=== PATIENT | male | born 1990 | race Two or more races ===

== ENCOUNTER 2018-04-23 13:51 | Emergency (ER) | payer OTHER ==
[2018-04-23 14:23] VITALS: BP 122/70; PULSE 80; TEMP 98.1; BMI 25.1
--- NOTE | 2018-04-23 15:12 | PDOC ---
History of Present Illness - General Chief Complaint: Injury Stated Complaint: INJURY Time Seen by Provider: 04/23/18 14:38 History Source: Patient Exam Limitations: No Limitations - History of Present Illness Initial Comments: 04/23/18 15:08 pt twisted right ankle 3 days ago stepped in a drain that was not covered. Past History - Past Medical History Allergies/Adverse Reactions: Allergies Allergy/AdvReac Type Severity Reaction Status Date / Time No Known Allergies Allergy Verified 04/23/18 14:23 Home Medications: Ambulatory Orders No Home Medications 0 dose .ROUTE UTDICT 12/20/12 Asthma: Yes COPD: No - Suicide/Smoking/Psychosocial Hx Smoking Status: No Smoking History: Never smoked Number of Cigarettes Smoked Daily: 0 Hx Alcohol Use: No Drug/Substance Use Hx: No Substance Use Type: None *Physical Exam - Vital Signs Last Vital Signs Temp Pulse Resp BP Pulse Ox 98.1 F 80 18 122/70 100 04/23/18 14:21 04/23/18 14:21 04/23/18 14:21 04/23/18 14:21 04/23/18 14:21 - Physical Exam General Appearance: Yes: Nourished HEENT: positive: EOMI, EDITH Neck: positive: Supple. negative: Tender Respiratory/Chest: positive: Lungs Clear, Normal Breath Sounds Lymphatic: negative: Adenopathy Musculoskeletal: positive: Normal Inspection Extremity: positive: Normal Capillary Refill, Tender (lateral maleolus nv intact , strong pulses ) Integumentary: positive: Normal Color, Dry, Warm Neurologic: positive: Fully Oriented, Alert, Normal Mood/Affect, Normal Response , Motor Strength 5/5 Moderate Sedation - Procedure Monitoring Vital Signs: Procedure Monitoring Vital Signs Temperature 98.1 F 04/23/18 14:21 Pulse Rate 80 04/23/18 14:21 Respiratory Rate 18 04/23/18 14:21 Blood Pressure 122/70 04/23/18 14:21 O2 Sat by Pulse Oximetry (%) 100 04/23/18 14:21 ED Treatment Course - RADIOLOGY Radiology Studies Ordered: Category Date Time Status ANKLE & FOOT-RIGHT* [RAD] Stat Radiology 04/23/18 14:42 Ordered Medical Decision Making - Medical Decision Making 04/23/18 15:08 cc: right ankle pain for 3 days will get xray and air cast, crutches 04/23/18 15:15 xray is negative for fracture will treat for ankle sprain all questions asked and answered at discharge. *DC/Admit/Observation/Transfer Diagnosis at time of Disposition: Sprained ankle Qualifiers: Encounter type: initial encounter Involved ligament of ankle: unspecified ligament Laterality: right Qualified Code(s): S93.401A - Sprain of unspecified ligament of right ankle, initial encounter - Discharge Dispostion Disposition: HOME Condition at time of disposition: Good - Referrals Referrals: Jose Larkin MD [Staff Physician] - - Patient Instructions Printed Discharge Instructions: DI for Ankle Sprain Additional Instructions: elevate and apply warm compresses every 3hrs for 20 minutes to the area of pain use the air cast splint while awake remove to sleep and bathe use crutches to ambulate take ibuprifen or advil or motrin 600mg every 8hrs for pain as needed follow with the orthopedist Dr. Larkin or for follow up in one week - Post Discharge Activity
== END 2018-04-23 15:30 | disposition home or self-care (01) ==
LOC: JERFT 13:51
PROC: 2W3QX1Z Immobilization of Right Lower Leg using Splint (ICD-10-PCS; principal; 2018-04-23)
DX: S93.401A Sprain of unspecified ligament of right ankle, initial encounter (principal); X58.XXXA Exposure to other specified factors, initial encounter; Y93.89 Activity, other specified; Y92.89 Other specified places as the place of occurrence of the external cause
CPT/HCPCS: 73610-TC-RT-FY; 73630-TC-RT-FY; 99281-25

== ENCOUNTER 2020-05-15 08:03 | Emergency (ER) | payer OTHER ==
[2020-05-15 08:13] VITALS: BP 162/90; PULSE 67; TEMP 97.9; BMI 26.6
[2020-05-15] MEDS ORDERED: SODIUM CHLORIDE 1,000 ML IV STA (08:59)
[2020-05-15 10:00] LABS: BASO % 0.6 % (0-2.0); EOS % 0.5 % (0-4.5); HEMATOCRIT 44.4 % (35.4-49); HEMOGLOBIN 14.9 GM/dL (11.7-16.9); LYMPH % 27.1 % (8-40); MCH 30.1 pg (25.7-33.7); MCHC 33.5 g/dl (32.0-35.9); MEAN CELL VOLUME 89.6 fl (80-96); MEAN PLT VOLUME 9.4 fl (7.5-11.1); MONO % 4.6 % (3.8-10.2); NEUT % 67.2 % (42.8-82.8); PLATELET COUNT 245 K/MM3 (134-434); RBC 4.95 M/mm3 (4.00-5.60); WHITE BLOOD COUNT 5.3 K/mm3 (4.0-10.0)
[2020-05-15 10:15] LABS: INR 1.14 (0.83-1.09); PROTHROMBIN TIME (PATIENT) 13.7 SEC (9.7-13.0)
[2020-05-15 10:18] LABS: CHLORIDE 103 mmol/L (98-107); POTASSIUM 4.2 mmol/L (3.5-5.1); SODIUM 136 mmol/L (136-145)
[2020-05-15 10:21] LABS: CALCIUM 8.8 mg/dL (8.5-10.1)
[2020-05-15 10:22] LABS: ANION GAP 5 MMOL/L (8-16); BLOOD UREA NITROGEN 15.8 mg/dL (7-18); CO2 28 mmol/L (21-32); GLUCOSE,RANDOM 93 mg/dL (74-106)
[2020-05-15 10:25] LABS: CREATININE 1.1 mg/dL (0.55-1.3)
[2020-05-15 10:26] LABS: SGOT/AST 19 U/L (15-37); SGPT/ALT 30 U/L (13-61)
[2020-05-15 10:28] LABS: ALK PHOS 54 U/L (45-117); BILIRUBIN,TOTAL 1.2 mg/dL (0.2-1); TOT PROT 7.5 g/dl (6.4-8.2)
== END 2020-05-15 11:30 | disposition home or self-care (01) ==
LOC: JER 08:03
PROC: 3E0337Z Introduction of Electrolytic and Water Balance Substance into Peripheral Vein, Percutaneous Approach (ICD-10-PCS; principal; 2020-05-15)
DX: R07.89 Other chest pain (principal)
CPT/HCPCS: 36415; 71046-TC-FY; 80053; 82550; 84484; 85025; 85379; 85610; 93005; 93010; 99285-25; C9803; U0003